=== PATIENT | male | born 1950 | race Caucasian/White ===

== ENCOUNTER 2016-07-16 11:14 | Emergency (ER) | payer OTHER ==
[2016-07-25] MEDS ORDERED: POLYETHYLENE GL17 GM PO (11:36)
[2016-07-25] MEDS ORDERED: COMBIVENT RESPIM4 GM IH (11:36)
[2016-07-25] MEDS ORDERED: CLARITIN10 MG PO (11:37)
[2016-07-25] MEDS ORDERED: IPRAT-ALBUT 0.5-3 ML NEB (11:37)
[2016-07-25] MEDS ORDERED: LASIX80 MG PO (11:37)
[2016-07-25] MEDS ORDERED: SINGULAIR10 MG PO (11:37)
[2016-07-25] MEDS ORDERED: ALDACTONE50 MG PO (11:38)
[2016-07-25] MEDS ORDERED: NEURONTIN100 MG PO (11:38)
[2016-07-25] MEDS ORDERED: SPIRIVA18 MCG IH (11:38)
[2016-07-25] MEDS ORDERED: ADVAIR 500-501 EACH IH (11:39)
[2016-07-25] MEDS ORDERED: LIPITOR20 MG PO (11:39)
[2016-07-25] MEDS ORDERED: K-DUR20 MEQ PO (11:39)
[2016-07-25] MEDS ORDERED: DIGITEK125 MCG PO (11:40)
[2016-07-25] MEDS ORDERED: COUMADIN6 MG PO (11:40)
[2016-07-25] MEDS ORDERED: PROTONIX40 MG PO (11:41)
[2016-07-25] MEDS ORDERED: DILT-XR180 MG PO (11:41)
[2016-07-25] MEDS ORDERED: GLUCOTROL5 MG PO (11:41)
[2016-07-25] MEDS ORDERED: ASPIRIN EC81 MG PO (11:41)
[2016-07-25] MEDS ORDERED: NITROSTAT0.4 MG SL (11:42)
[2016-07-25] MEDS ORDERED: COUMADIN4 MG PO (11:43)
[2016-07-25] MEDS ORDERED: COUMADIN3 MG PO (11:43)
[2016-07-25] MEDS ORDERED: NICODERM CQ1 EAC1 TD (11:44)
[2016-07-25] MEDS ORDERED: TAMIFLU75 MG PO (11:44)
[2016-07-25] MEDS ORDERED: ACETAMINOPHEN325 MG PO (11:44)
[2016-07-25] MEDS ORDERED: ZITHROMAX250 MG PO (11:46)
[2016-07-25] MEDS ORDERED: PREDNISONE10 MG PO (11:46)
== END 2016-07-16 14:03 | disposition critical access hospital (66) ==
LOC: ER 11:14
DX: J44.1 Chronic obstructive pulmonary disease with (acute) exacerbation (principal); E11.9 Type 2 diabetes mellitus without complications; E78.5 Hyperlipidemia, unspecified; K21.9 Gastro-esophageal reflux disease without esophagitis; F17.220 Nicotine dependence, chewing tobacco, uncomplicated; Z79.82 Long term (current) use of aspirin; Z79.84 Long term (current) use of oral hypoglycemic drugs; Z79.899 Other long term (current) drug therapy; Z88.8 Allergy status to other drugs, medicaments and biological substances

== ENCOUNTER 2016-07-16 11:14 | Inpatient (IN) | payer OTHER ==
--- NOTE | 2016-07-17 14:18 | NUR ---
1330 REPORT GIVEN TO ARNOL MACHUCA RN IN ICU. PT TRANSFERED VIA W/C TO UNIT.
--- NOTE | 2016-07-19 12:10 | NUR ---
1130: REPORT GIVEN TO VANDANA MUELLER; PT TRANSPORTED BY W/C WITH O2 AND TELE WITH FAMILY AND PT BELONGINGS. VSS. PT/FAMILY AGREEABLE/ VERB. UNDERSTANDING.
--- NOTE | 2016-07-19 14:39 | NUR ---
1201 - PT ARRIVED TO FLOOR VIA WHEELCHAIR WITH O2. NO S/S OF DISTRESS. ORIENTED TO ROOM AND EDUCATED ON HOW TO USE CALL BUCK. PT VERBALIZES UNDERSTANDING ON HOW TO USE CALL BUCK. ENCOURAGED PT TO USE CALL BUCK PRN. CALL BUCK WITHIN REACH
[2016-07-25] MEDS ORDERED: COMBIVENT RESPIM4 GM IH (11:36)
[2016-07-25] MEDS ORDERED: POLYETHYLENE GL17 GM PO (11:36)
[2016-07-25] MEDS ORDERED: SINGULAIR10 MG PO (11:37)
[2016-07-25] MEDS ORDERED: CLARITIN10 MG PO (11:37)
[2016-07-25] MEDS ORDERED: IPRAT-ALBUT 0.5-3 ML NEB (11:37)
[2016-07-25] MEDS ORDERED: LASIX80 MG PO (11:37)
[2016-07-25] MEDS ORDERED: ALDACTONE50 MG PO (11:38)
[2016-07-25] MEDS ORDERED: SPIRIVA18 MCG IH (11:38)
[2016-07-25] MEDS ORDERED: NEURONTIN100 MG PO (11:38)
[2016-07-25] MEDS ORDERED: K-DUR20 MEQ PO (11:39)
[2016-07-25] MEDS ORDERED: LIPITOR20 MG PO (11:39)
[2016-07-25] MEDS ORDERED: ADVAIR 500-501 EACH IH (11:39)
[2016-07-25] MEDS ORDERED: COUMADIN6 MG PO (11:40)
[2016-07-25] MEDS ORDERED: DIGITEK125 MCG PO (11:40)
[2016-07-25] MEDS ORDERED: PROTONIX40 MG PO (11:41)
[2016-07-25] MEDS ORDERED: DILT-XR180 MG PO (11:41)
[2016-07-25] MEDS ORDERED: ASPIRIN EC81 MG PO (11:41)
[2016-07-25] MEDS ORDERED: GLUCOTROL5 MG PO (11:41)
[2016-07-25] MEDS ORDERED: NITROSTAT0.4 MG SL (11:42)
[2016-07-25] MEDS ORDERED: COUMADIN4 MG PO (11:43)
[2016-07-25] MEDS ORDERED: COUMADIN3 MG PO (11:43)
[2016-07-25] MEDS ORDERED: TAMIFLU75 MG PO (11:44)
[2016-07-25] MEDS ORDERED: ACETAMINOPHEN325 MG PO (11:44)
[2016-07-25] MEDS ORDERED: NICODERM CQ1 EAC1 TD (11:44)
[2016-07-25] MEDS ORDERED: PREDNISONE10 MG PO (11:46)
[2016-07-25] MEDS ORDERED: ZITHROMAX250 MG PO (11:46)
== END 2016-07-20 12:48 | disposition home or self-care (01) | DRG 189 ==
LOC: ER 11:14 → MED 14:04 → ICU 14:04 → MED 07-19 11:55
PROVIDERS: ADMIT Internal Medicine
DX: J96.21 Acute and chronic respiratory failure with hypoxia (principal); J18.9 Pneumonia, unspecified organism; I50.22 Chronic systolic (congestive) heart failure; J44.0 Chronic obstructive pulmonary disease with (acute) lower respiratory infection; J44.1 Chronic obstructive pulmonary disease with (acute) exacerbation; I25.10 Atherosclerotic heart disease of native coronary artery without angina pectoris; E11.9 Type 2 diabetes mellitus without complications; F17.210 Nicotine dependence, cigarettes, uncomplicated; N18.9 Chronic kidney disease, unspecified; K21.9 Gastro-esophageal reflux disease without esophagitis; G47.33 Obstructive sleep apnea (adult) (pediatric); F17.290 Nicotine dependence, other tobacco product, uncomplicated; E78.5 Hyperlipidemia, unspecified; J11.1 Influenza due to unidentified influenza virus with other respiratory manifestations; E11.65 Type 2 diabetes mellitus with hyperglycemia; T38.0X5A Adverse effect of glucocorticoids and synthetic analogues, initial encounter; Y92.230 Patient room in hospital as the place of occurrence of the external cause; E87.5 Hyperkalemia; E83.42 Hypomagnesemia; I48.0 Paroxysmal atrial fibrillation; Z95.1 Presence of aortocoronary bypass graft; Z95.2 Presence of prosthetic heart valve; Z79.01 Long term (current) use of anticoagulants; Z79.84 Long term (current) use of oral hypoglycemic drugs; Z99.81 Dependence on supplemental oxygen; Z79.899 Other long term (current) drug therapy; Z88.8 Allergy status to other drugs, medicaments and biological substances; Z83.6 Family history of other diseases of the respiratory system
CPT/HCPCS: 36415; 87502; 94664; 97162-GP; 97166; J0456; J0696